=== PATIENT | male | born 1975 | race Caucasian/White ===

== ENCOUNTER 2023-09-15 18:24 | Emergency (ER) | payer BC, SELFPAY ==
[2023-09-15 18:34] VITALS: BP 167/108; PULSE 90; RESP 16; TEMP 37.6; O2SAT 98
--- NOTE | 2023-09-15 18:42 | ED_ITS ---
HPI - Ear Problem General Chief complaint: Ear Stated complaint: EARACHE Time Seen by Provider: 09/15/23 18:42 Source: patient, RN notes reviewed and old records reviewed Mode of arrival: ambulatory Limitations: no limitations History of Present Illness HPI Narrative: 48 year old male accompanied by with complaints of right ear pain which started on Saturday. states that about a week or 2 ago patient used peroxide flushes to remove ear wax from his right ear. Patient states that he has problems with excessive wax in his ears and he states a lot of ear wax came out with the flushes. Patient denies any known fevers, chills or sweats, denies any sinus congestion or drainage or any body aches or cough.Patient reports that he has some soreness behind his right ear also with no redness or swelling of ma stoid area, no tragal tenderness voiced. MD Complaint: ear pain Location: right ear Duration: constant Severity: moderate Discharge from ear: Reports yes - purulent Treatment prior to arrival: other (peroxide) Related Data Allergies Allergy/AdvReac Type Severity Reaction Status Date / Time No Known Allergies Allergy Verified 09/15/23 18:29 Review of Systems Review of Systems: CONSTITUTIONAL: Denies malaise, chills, sweats, or fever. EYES: Denies visual changes, redness, or discharge. ENT: Reports no rhinorrhea, congestion, sinus pain,positive for right otalgia and no sore throat. CARDIOVASCULAR: Denies chest pain, palpitations, or edema. RESPIRATORY: Reports cough.? Denies dyspnea. GASTROINTESTINAL: Denies abdominal pain, nausea, vomiting, diarrhea SKIN: Denies rash or itching. MUSCULOSKELETAL: Denies myalgia. NEUROLOGIC: Denies headache. All systems reviewed & are unremarkable except as noted in HPI and below PMFSH Social History Social History (Updated 09/16/23 @ 08:33 by Kaylie Nieto NP) Smoking status: Never smoker Alcohol intake: current Alcohol use details: social Substance use type: does not use Living arrangements: with family Gender identity (if verbalized by the patient): Male Comments At time of signature, agree with nursing past medical, surgical, social and family history. There is no relevant family history pertinent to the presenting complaint Exam Narrative: GENERAL: Well-appearing, well-nourished, and in no acute distress. HEAD: Normocephalic EYES: PERRLA, conjunctivae clear ENT: Nares clear, turbinates edematous and erythematous, clear discharge. Mucous membranes moist.Right TM red, ear canal swollen with excoriation noted with some purulent drainage noted from ear,reports some soreness behind his ear with no redness or swelling of mastoid area. Left TM pearly yañez with dull light reflex; no tragal tenderness. Oropharynx erythematous without lesions. Tonsils not enlarged and without exudate, no drooling, no hoarseness, no trismus, uvula midline. NECK: Supple. No lymphadenopathy CHEST: Clear to auscultation, breath sounds equal. No wheezing, rhonchi, rales, or stridor. No respiratory distress, speaks in full sentences.SAO2 98% on room air HEART: Regular rate and rhythm. No murmur heard. SKIN: Warm, dry, no rash. NEURO: Alert and oriented x3. PSYCH: Normal mood and affect Course Course Emergency Course: Patient is aware of diagnosis, understands and agrees to treatment plan.? Anticipatory guidance given.? Patient agrees to follow-up as directed and is aware of reasons to seek care at the emergency department. Portions of this record may have been created with voice recognition software Level of Care: Express Care Visit Vital Signs Vital signs: Vital Signs Temperature 37.6 C H 09/15/23 18:34 Pulse Rate 90 09/15/23 18:34 Respiratory Rate 16 09/15/23 18:34 Blood Pressure 167/108 H 09/15/23 18:34 Pulse Oximetry 98 09/15/23 18:34 Temperature 37.6 C H 09/15/23 18:34 Pulse Rate 90 09/15/23 18:34 Respiratory Rate 16 09/15/23 18:34 Blood Pressure 160/108 H 09/15/23 19:18 Pulse Oximetry 98 09/15/23 18:34 reviewed Medical Decision Making Differential Diagnosis Differential Diagnosis: otitis media, otitis externa, right otalgia,viral infection Medical Records Medical records reviewed: Yes I reviewed the external patient's medical records. Vital Signs Vital Signs: Vital Signs Temperature 37.6 C H 09/15/23 18:34 Pulse Rate 90 09/15/23 18:34 Respiratory Rate 16 09/15/23 18:34 Blood Pressure 167/108 H 09/15/23 18:34 Pulse Oximetry 98 09/15/23 18:34 Temperature 37.6 C H 09/15/23 18:34 Pulse Rate 90 09/15/23 18:34 Respiratory Rate 16 09/15/23 18:34 Blood Pressure 160/108 H 09/15/23 19:18 Pulse Oximetry 98 09/15/23 18:34 reviewed Critical Care Time Critical Care Time Critical Care Time: No Discharge Plan Discharge Clinical Impression: Otitis media Qualifiers: Otitis media type: suppurative Chronicity: acute Laterality: left Recurrence: non-recurrent Spontaneous tympanic membrane rupture: without spontaneous rupture Qualified Code(s): H66.002 - Acute suppurative otitis media without spontaneous rupture of ear drum, left ear Otitis externa Qualifiers: Otitis externa type: diffuse Chronicity: acute Laterality: right Qualified Code(s): H60.311 - Diffuse otitis externa, right ear Patient Disposition: Home, Self-Care Condition: Stable Instructions: Antibiotic Form, Swimmer's Ear (AC), Ear Infection (GEN) Additional Instructions: Increase fluids especially juices and water [id number] cough and cold medicine of your choice for your symptoms Zyrtec Claritin or Aiyana daily for any sinus congestion or drainage Steroids as directed--take with food Ear drops as prescribed heat to the face 20-30 minutes 4-6 times a day for pain Salt water gargles, throat lozenges or throat sprays as desired Antibiotic as directed--finished the medication If your symptoms persist, change or worsen significantly before you can contact your personal physician then please, without delay, go to the emergency department for further evaluation. Follow-up with PCP in 7-10 days or sooner if needed Follow up with PCP soon in regards to your blood pressure which is elevated above threshold for referral. Blood pressure above 120/80 may indicate pre- hypertension. 167/108 Tylenol or ibuprofen for any fever pain Prescriptions: New methylprednisolone [Medrol (David)] 4 mg tablets,dose pack See Rx Instructions .ROUTE .COMPLEX Qty: 21 0RF Rx Instructions: orally per package directions ofloxacin 0.3 % drops 5 drp RIGHT EAR BID 7 Days Qty: 10 0RF amoxicillin 875 mg tablet 875 mg PO Q12H Qty: 20 0RF Follow-up/Referrals: Harms,Luis E Akhtar M.D. [Primary Care Provider] - Time of Disposition: 18:54 Quality [place] Coma Scale Eyes: Open Verbal: Oriented and Alert Motor: Follows Commands Timothy Coma Total Score: 15
[2023-09-15 19:18] VITALS: BP 160/108
== END 2023-09-15 19:05 | disposition home or self-care (01) ==
PROVIDERS: Emergency Provider Registered Nurse; PCP Family Medicine
DX: H66.002 Acute suppurative otitis media without spontaneous rupture of ear drum, left ear (principal); H60.311 Diffuse otitis externa, right ear
CPT/HCPCS: 99213; G0463